=== PATIENT | male | born 1970 | race Caucasian/White ===

== ENCOUNTER 2024-08-15 21:26 | Inpatient (IN) | payer OTHER ==
[~2024-08-15] VITALS: Ht 185.4 cm; Wt 105.5 kg
[2024-08-15 22:27] LABS: BASOPHILS ABSOLUTE AUTO 0.03 K/mm3 (0.00-0.23); BASOPHILS PERCENT AUTO 0 % (0-2); EOSINOPHILS PERCENT AUTO 0 % (0-6); Hematocrit 33.9 % (37.0-53.0); Hemoglobin 10.1 g/dL (13.5-17.5); IMMATURE GRAN ABSOLUTE AUTO 0.06 K/mm3 (0.00-0.10); IMMATURE GRAN PERCENT AUTO 1 % (0-1); LYMPHOCYTES ABSOLUTE AUTO 0.65 K/mm3 (0.84-5.20); LYMPHOCYTES PERCENT AUTO 5 % (21-46); MONOCYTES ABSOLUTE AUTO 1.22 K/mm3 (0.16-1.47); MONOCYTES PERCENT AUTO 9 % (4-13); Mean Corpuscular HGB Conc 29.8 g/dL (31.5-36.5); Mean Corpuscular Volume 67 fL (80-100); Mean Platelet Volume 9.3 fL (9.1-12.4); NEUTROPHILS ABSOLUTE AUTO 11.37 K/mm3 (1.96-9.15); NEUTROPHILS PERCENT AUTO 85 % (41-73); Platelet Count 353 K/mm3 (150-400); RDW Coefficient Variation 16.3 % (11.7-14.2); RDW Standard Deviation 38.1 fL (35.1-46.3); Red Blood Cell Count 5.04 M/mm3 (4.30-5.90); White Blood Cell Count 13.33 K/mm3 (4.00-11.30)
[2024-08-15 22:40] LABS: Albumin, Blood 3.6 g/dL (3.4-5.0); Albumin/Globulin Ratio 0.9 (0.8-1.8); Bilirubin, Total 1.8 mg/dL (0.1-1.0); Bun/Creatinine Ratio 10.9 (12.0-20.0); Calcium, Blood 9.3 mg/dL (8.5-10.1); Creatinine, Blood 1.1 mg/dL (0.60-1.20); Globulin, Blood 4.2 g/dL (2.2-4.0); Total Protein, Blood 7.8 g/dL (6.4-8.2)
[2024-08-15 22:59] LABS: Source, Urine Voided
[2024-08-15 23:04] LABS: Bilirubin, Urine Neg (Neg); Blood, Urine Neg (Neg); Glucose Qualitative, Urine Neg (Neg); Ketones, Urine 1+ (Neg); Leukocyte Esterase, Urine 1+ (Neg); Nitrite, Urine Neg (Neg); Protein, Urine 2+ (Neg); Specific Gravity, Urine 1.015 (1.003-1.022); Urobilinogen, Urine 2+ (Normal); pH, Urine 6.5 (5.0-8.0)
[2024-08-15 23:18] LABS: Appearance, Urine Clear (Clear); Color, Urine Yellow (P-Yellow)
[2024-08-15 23:19] LABS: Amorphous Light (0-Heavy); Bacteria Few /hpf; Granular Casts 0-2 /lpf (0); Mucus Mod (0-Heavy); Red Blood Cells, Urine Not Seen /hpf (0-2); Squamous Epithelial Cells Rare /hpf (Few); White Blood Cells, Urine 0-2 /hpf (0-5)
[2024-08-16] VITALS (25 sets, daily range): BP systolic 91–124; BP diastolic 58–87
[2024-08-16] MEDS ORDERED: Ketorolac Tromethamine 30mg Vial IV ONE (00:15)
[2024-08-16] MEDS ORDERED: NS 1,000 ML IV SCH (00:15)
[2024-08-16] MEDS ORDERED: Ondansetron HCl 2 MG / ML 2ML Vial IV PRN ×2 (01:55→17:20)
[2024-08-16] MEDS ORDERED: Morphine Sulfate 4 MG/1 ML Injection IV PRN (01:55)
[2024-08-16] MEDS ORDERED: NS 250 ML IV PRN (03:30)
--- NOTE | 2024-08-16 05:30 | NUR ---
SHIFT SUMMARY PT ER ADMIT THIS SHIFT FOR ACUTE APPY. PT REPORTS THAT THE PAIN STARTED A FEW DAYS AGO. PT IS A HORSE [employer] THAT RESIDES IN [place] AND IS HERE FOR WORK. PT RECEIVED IV FLUIDS IN ER, AND IV TORADOL. PT REPORTS THE IV TORADOL HAS BEEN EFFECTIVE FOR PAIN AND RATES PAIN TOLERABLE AT 3/10. PT DENIES N/V. PT HAS NPO. AWAITING SURGICAL CONSULT AT THIS TIME. PT INDEPENDENT IN THE ROOM, VITALS STABLE. BED IN LOWEST POSITION, CALL LIGHT WITHIN REACH.
[2024-08-16] MEDS ORDERED: Ampicillin Sod/Sulbactam Sod 3 GM in NS 100 ML IV SCH (06:00)
[2024-08-16] MEDS ORDERED: FentaNYL Citrate 50 MCG/ML 2 ML Injection ONE ×2 (13:43→15:44)
[2024-08-16] MEDS ORDERED: propofoL 20 ML IV ONE ×6 (13:43→16:22)
[2024-08-16] MEDS ORDERED: Sugammadex Sodium 200 MG/2ML SDV (100 MG/ML) ONE ×2 (13:44)
[2024-08-16] MEDS ORDERED: Ketorolac Tromethamine 30mg Vial ONE ×2 (13:45→15:00)
[2024-08-16] MEDS ORDERED: Ondansetron HCl 2 MG / ML 2ML Vial ONE ×2 (13:45→15:00)
[2024-08-16] MEDS ORDERED: Dexamethasone Sod Phos 10 MG/ML 1ML VIAL ONE ×2 (13:45→15:00)
[2024-08-16] MEDS ORDERED: Lactated Ringer's 1,000 ML IV SCH ×2 (13:45→17:15)
[2024-08-16] MEDS ORDERED: Rocuronium Bromide 10 MG/ML 5ML Injection IV ONE ×4 (13:45→15:53)
[2024-08-16] MEDS ORDERED: Bupivacaine 0.5% HCl 5 MG/ML 30MLVIAL ONE (13:49)
--- NOTE | 2024-08-16 14:04 | NUR ---
PT HAS 20G IV IN RAC THAT FLOWS WELL TO GRAVITY, SHOWS NO SIGNS OF INFILTRATION.
[2024-08-16] MEDS ORDERED: Midazolam HCl 1MG / ML 2ML Vial IV ONE (14:15)
[2024-08-16] MEDS ORDERED: propofoL 50 ML IV ONE (14:51)
[2024-08-16] MEDS ORDERED: Metoclopramide HCl 5MG / ML 2ML Vial ONE (15:06)
[2024-08-16] MEDS ORDERED: HYDROmorphone HCl/Pf 1MG SYR ONE (15:07)
[2024-08-16] MEDS ORDERED: Flumazenil 0.1 MG / ML 5ML Vial ONE (15:09)
--- NOTE | 2024-08-16 15:33 | NUR ---
PT TO OR AT ABOUT 1345
[2024-08-16] MEDS ORDERED: Ketamine HCl 100 MG / ML 5ML Vial ONE (15:43)
[2024-08-16] MEDS ORDERED: Metoclopramide HCl 5MG / ML 2ML Vial IV PRN (17:15)
[2024-08-16] MEDS ORDERED: HYDROmorphone HCl/Pf 1MG SYR IV PRN (17:15)
[2024-08-16] MEDS ORDERED: FLU VACC TS2024-25(6MOS UP)/PF 45 MCG/0.5 ML SYRINGE IM PRN (17:15)
[2024-08-16] MEDS ORDERED: Naloxone HCl 0.4MG / ML 1ML Vial ONE (17:36)
[2024-08-16] MEDS ORDERED: Acetaminophen 500 MG Tab PO SCH (18:00)
[2024-08-16] MEDS ORDERED: Piperacillin/Tazobactam Sod 3.375 GM in NS 100 ML IV SCH (18:00)
--- NOTE | 2024-08-16 19:24 | NUR ---
POST OP: REPORT RECEIVED FROM DRIVER RETRAINING INSTRUCTOR. PT TO UNIT AT ABOUT 1830. A/O VSS, SURGICAL SITE AND LUANNE DRAIN WNL. PT DENIES PAIN, N/V. IV ANTIBIOTIC INFUSING. PT GIVEN CALL LIGHT AND INSTRUCTED TO CALL STAFF FOR 1ST TIME OOB. REPORT PASSED TO SERVANDO DUQUE RN.
[2024-08-17 04:42] VITALS: BP 131/87
--- NOTE | 2024-08-17 06:44 | NUR ---
PT TOLERATING PO,PASSING FLATUS,VOIDING, AMBULATES WITH SBA.
[2024-08-17 07:31] VITALS: BP 125/79
--- NOTE | 2024-08-17 11:28 | NUR ---
EMESIS X1 AFTER DR. DALEY REDUCED UMBILICAL HERNIA AT BEDSIDE.
[2024-08-17] MEDS ORDERED: NS 250 ML IV PRN (12:05)
[2024-08-17 14:53] VITALS: BP 102/76
[2024-08-17 14:56] VITALS: BP 120/76
--- NOTE | 2024-08-17 16:37 | NUR ---
Pt is alert and conversational and agrees to a short visit. Pt is experiencing pain related to a hernia complication and has slight difficulty speaking but is receptive to conversation nonetheless. Provided compassionate listening. Prayer offered. Pt accepted prayer and thanked me for the visit. "I appreciate you visiting"
--- NOTE | 2024-08-17 17:09 | NUR ---
SHIFT SUMMARY DR. DALEY REDUCED UMBILICAL HERNIA AT BEDSIDE TODAY. MONITORING FOR S/S OF INCARCERATED HERNIA. PT REPORTS ABD FEELS LESS DISTENDED AFTER HAVING A LOOSE BM TODAY AND PASSING FLATUS. PT GOING SLOW WITH PO INTAKE. INDEP IN RESTROOM. LAP SITES TO ABD ARE CDI AND LUANNE DRAIN WITH MINIMAL SS DRAINAGE. LUANNE DRESSING REINFORCED FOR SCANT LEAKING. PT DENIES PAIN. VSS. USES CALL LIGHT APPROPRIATELY.
[2024-08-17 18:42] VITALS: BP 133/86
[2024-08-17 19:08] VITALS: BP 123/78
[2024-08-18] VITALS (7 sets, daily range): BP systolic 100–125; BP diastolic 67–79
--- NOTE | 2024-08-18 06:32 | NUR ---
SHIFT SUMMARY POD 2 LAP APPY. IS A/OX4 WITH VSS. NO SX OF INCARCERATED HERNIA. PT DENIES PAIN. INCREASED ABD DISTENTION NOTED. PT REPORTS PASSING FLATUS AND HAVING 2 BM'S THIS SHIFT. IS VOIDING. PT C/O INCREASED DIZZINESS AND DECLINES AMBULATION IN HALLWAY. LUANNE DRAINING SERIOUS FLUID, LEAKING AT INSERTION SITE. CHG IN PLACE, REINFORCED WITH GAUZE AND TEGADERM. ORDER FOR CBC AND CMP OBTAINED, AWAITING LABS. ABX INFUSED PER ORDERS. POOR APPETITE, ANALY PO INTAKE. PT CURRENTLY RESTING IN BED WITH CALL LIGHT IN REACH, ABLE TO MAKE NEEDS KNOWN. WILL GIVE REPORT TO ONCOMING RN
[2024-08-18 06:47] LABS: BASOPHILS ABSOLUTE AUTO 0.02 K/mm3 (0.00-0.23); BASOPHILS PERCENT AUTO 0 % (0-2); EOSINOPHILS ABSOLUTE AUTO 0.01 K/mm3 (0.00-0.68); EOSINOPHILS PERCENT AUTO 0 % (0-6); Hematocrit 25.7 % (37.0-53.0); Hemoglobin 7.5 g/dL (13.5-17.5); IMMATURE GRAN ABSOLUTE AUTO 0.06 K/mm3 (0.00-0.10); IMMATURE GRAN PERCENT AUTO 1 % (0-1); LYMPHOCYTES ABSOLUTE AUTO 0.64 K/mm3 (0.84-5.20); LYMPHOCYTES PERCENT AUTO 6 % (21-46); MONOCYTES ABSOLUTE AUTO 0.68 K/mm3 (0.16-1.47); MONOCYTES PERCENT AUTO 6 % (4-13); Mean Corpuscular HGB 19.8 pg (26.0-34.0); Mean Corpuscular HGB Conc 29.2 g/dL (31.5-36.5); Mean Corpuscular Volume 68 fL (80-100); Mean Platelet Volume 9.6 fL (9.1-12.4); NEUTROPHILS ABSOLUTE AUTO 9.25 K/mm3 (1.96-9.15); NEUTROPHILS PERCENT AUTO 87 % (41-73); Platelet Count 317 K/mm3 (150-400); RDW Coefficient Variation 16.5 % (11.7-14.2); RDW Standard Deviation 40.1 fL (35.1-46.3); Red Blood Cell Count 3.79 M/mm3 (4.30-5.90); White Blood Cell Count 10.66 K/mm3 (4.00-11.30)
[2024-08-18 07:20] LABS: Albumin, Blood 2.3 g/dL (3.4-5.0); Albumin/Globulin Ratio 0.6 (0.8-1.8); Bilirubin, Total 0.6 mg/dL (0.1-1.0); Bun/Creatinine Ratio 21.4 (12.0-20.0); Calcium, Blood 8.5 mg/dL (8.5-10.1); Creatinine, Blood 1.03 mg/dL (0.60-1.20); Globulin, Blood 3.9 g/dL (2.2-4.0); Potassium, Blood 3.9 mmol/L (3.5-5.5); Total Protein, Blood 6.2 g/dL (6.4-8.2)
--- NOTE | 2024-08-18 14:11 | NUR ---
Pt was alert and conversational. Pt was open to a short visit. Addressed pt's current condition. Pt is experiencing discomfort related to appendix removal. Pt did not have a restful evening. Pt remains positive and polite in spite of these circumstances. Prayer offered. Pt was grateful for prayer and expressed gratitude- "god bless you"
--- NOTE | 2024-08-18 15:10 | NUR ---
PT REPORTS DRAINAGE FROM INSERTION SITE OF LUANNE DRAIN. UPON ASSESSMENT SMALL AMOUNT OF PALE YELLOW FLUID DRAINING FROM SITE. DRESSING WET. GAUZE DRESSING REMOVED AND REPLACED WITH GAUZE AND CHG DRESSING. SITE NOW CLEAN, DRY AND INTACT. LUANNE DRAIN IS WITHIN NORMAL LIMITS AND COMPRESSED. NANCI Lilly RN ASSISTED AT BEDSIDE.
[2024-08-18 16:46] LABS: Percent Saturation 4.2 % (20.0-50.0)
--- NOTE | 2024-08-18 17:04 | NUR ---
SUMMARY: PT IS POD2 LAP APPY. A/O, VSS. SURGICAL SITES WNL. LUANNE WNL AND DRAINING SS FLUID. ABD IS MODERATLY DISTENDED AND SOFT. PT IS PASSING GAS AND HAD X2 DARK, GRAINY BM'S. DR. MATOS CONSULTED TODAY FOR BACTEREMIA AND SAW PT. PT DENIES N/V, PAIN. PT ABLE TO EAT SMALL AMT OF FOOD, BUT THEN REPORTS FEELING BLOATED. ENCOUARING MOBILITY, PT ABLE TO WALK IN THE HALLS A LITTLE TONIGHT. NO ACUTE CONCERNS, PT USES CALL LIGHT AND MAKES NEEDS KNOWN.
[2024-08-18] MEDS ORDERED: Iron Dextran 50 MG / ML 2ML Vial IV ONE (18:15)
[2024-08-18] MEDS ORDERED: Iron Dextran 975 MG in NS 250 ML IV ONE (18:15)
[2024-08-19 05:17] VITALS: BP 111/72
--- NOTE | 2024-08-19 05:31 | NUR ---
SHIFT SUMMARY POD 3-LAP APPY. 4 LAP SITES C/D/I W/SKIN ADHESIVE. LUANNE TO LLQ ABD W/SEROUS DRAINAGE, CHANGED TEGADERM DRESSING 1x THIS SHIFT SINCE SATURATED W/DRAINAGE. PT DENIES N/V, TOLERATING MIN PO INTAKE, HYPERACTIVE BT, PASSING FLATUS, PT HAD 1 LIQUID BROWN/BLK BM RESEMBLING COFFEE GROUNDS, PT STATES BMS HAVE BEEN LOOKING LIKE THIS. RECIEVED IV IRON DEXTRAN INFUSION, NO REACTIONS NOTED, PT ONLY REPORTED FEELING "HEAVY" AFTER INFUSION. AOX4. VSS. DENIES PAIN. IND W/URINAL. CALL LIGHT IN REACH.
[2024-08-19 06:09] LABS: Hematocrit 25.5 % (37.0-53.0); Hemoglobin 7.5 g/dL (13.5-17.5); Mean Corpuscular HGB 19.8 pg (26.0-34.0); Mean Corpuscular HGB Conc 29.4 g/dL (31.5-36.5); Mean Corpuscular Volume 68 fL (80-100); Mean Platelet Volume 9.6 fL (9.1-12.4); Platelet Count 377 K/mm3 (150-400); RDW Coefficient Variation 16.8 % (11.7-14.2); RDW Standard Deviation 40.3 fL (35.1-46.3); Red Blood Cell Count 3.78 M/mm3 (4.30-5.90); White Blood Cell Count 8.23 K/mm3 (4.00-11.30)
[2024-08-19 07:55] VITALS: BP 120/66
[2024-08-19 14:44] VITALS: BP 129/75
[2024-08-19] MEDS ORDERED: Ferrous Sulfate 325 MG Tab PO SCH (17:00)
--- NOTE | 2024-08-19 17:39 | NUR ---
SUMMARY AOX4 S/P LAP APPY. LAP SITES ARE JACKIE, C/D/I. TOLERATES PO INTAKE, PASSING FALTUS, HAVING LIQUID STOOLS. WALKING TORRES, DENIES N/V, N/V. VSS. IV ABX, AWAITING BLOOD CX. CALLS APROPRIATELY.
[2024-08-19 19:51] VITALS: BP 117/76
[2024-08-20 04:16] VITALS: BP 111/76
[2024-08-20 05:30] LABS: Hematocrit 25.5 % (37.0-53.0); Hemoglobin 7.6 g/dL (13.5-17.5); Mean Corpuscular HGB 20.3 pg (26.0-34.0); Mean Corpuscular HGB Conc 29.8 g/dL (31.5-36.5); Mean Corpuscular Volume 68 fL (80-100); NRBC ABSOLUTE 0.04 K/mm3 (0.00-0.02); NRBC Auto 0.4 /100 WBC (0.0-0.2); Platelet Count 396 K/mm3 (150-400); RDW Coefficient Variation 16.8 % (11.7-14.2); RDW Standard Deviation 40.6 fL (35.1-46.3); Red Blood Cell Count 3.75 M/mm3 (4.30-5.90); White Blood Cell Count 9.37 K/mm3 (4.00-11.30)
[2024-08-20 07:28] VITALS: BP 116/76
--- NOTE | 2024-08-20 07:45 | NUR ---
SHIFT SUMMARY NO ACUTE CHANGES THIS SHIFT. AOX4. VSS. POD 4-LAP APPY W/LUANNE LLQ ABD. x4 LAP SITES OPEN TO AIR, NO DRAINAGE NOTED. 20ML SEROUS DRAINAGE IN LUANNE. ACTIVE BT. PASSING FLATUS. DENIES N/V. ANALY PO. HAD 1 LOOSE BROWN/BLK BM RESEMBLING COFFEE GROUNDS. PENDING BLD CX RESULTS. CALL LIGHT IN REACH.
[2024-08-20 16:43] VITALS: BP 123/72
--- NOTE | 2024-08-20 18:27 | NUR ---
PT HAS BEEN STABLE POST OP DAY #4. LUANNE REMAIN IN PLACE WITH 35CC TOTAL SEROUS FLUID OUT THIS SHIFT. LAP SITES CLEAN AND DRY. PT HAVING FLATUS AND LOOSE GREEN STOOL. CONT IV ABX. BLOOD CULTURES PENDING. CONT PO IRON FOR ANEMIA. IV AT TKO. TOLERATING REG DIET. PT INDEP IN HALLWAYS. SHOWER TODAY. CALLS APPROPRIATELY NEEDED.
[2024-08-20 18:38] VITALS: BP 124/73
--- NOTE | 2024-08-21 04:45 | NUR ---
NOC SUMMARY- NO PAIN/ DISCOMFORT REPORTED. PT VOIDING WELL AND PASSING GAS. PT HAS BEEN OUT FOR WALKS ON THE UNIT WITHOUT ISSUE. PT DRAIN IS PUTTING OUT SCANT FLUID. PT LAP SITES ARE INTACT AND OPEN TO AIR. PT TOLERATING FOOD AND PO FLUIDS. CALL LIGHT IN REACH.
[2024-08-21 06:03] VITALS: BP 116/81
[2024-08-21 07:32] VITALS: BP 117/77
--- NOTE | 2024-08-21 08:47 | NUR ---
DR MATOS AND DR DALEY IN TO SEE PT.
[2024-08-21] MEDS ORDERED: FERSU300 PO (10:08)
[2024-08-21] MEDS ORDERED: VISBIOME 112.51 EACH PO (10:08)
[2024-08-21] MEDS ORDERED: CIPR500 PO (10:09)
[2024-08-21] MEDS ORDERED: METR500 PO (10:09)
[2024-08-21 13:54] VITALS: BP 117/76; BP 1176/76
--- NOTE | 2024-08-21 14:04 | NUR ---
DISCHARGING PT RECEIVED 1200 ABX PER ORDERS. DC'D LUANNE DRAIN PER ORDERS; PT TOLERATED WELL. DC'D IV, CATHETER INTACT.
--- NOTE | 2024-08-21 14:16 | NUR ---
discharged PT'S VSS. REVIEWED DC INSTRUCTIONS W/PT; VERBALIZED UNDERSTANDING. PT LEFT UNIT BY AMBULATION W/POSSESSIONS AND DC PAPERWORK IN HAND.
== END 2024-08-21 14:18 | disposition home or self-care (01) | DRG 398 ==
LOC: ER 21:26 → SURS 21:27 → ERHOLD 21:27 → SURS 08-16 03:06
PROVIDERS: Internal Medicine; Student in an Organized Health Care Education/Training Program; Surgery; ADMIT Surgery
PROC: 3E0T3BZ Introduction of Anesthetic Agent into Peripheral Nerves and Plexi, Percutaneous Approach (ICD-10-PCS; 2024-08-16)
PROC: 0DTJ4ZZ Resection of Appendix, Percutaneous Endoscopic Approach (ICD-10-PCS; principal; 2024-08-16 14:30)
DX: K35.33 Acute appendicitis with perforation, localized peritonitis, and gangrene, with abscess (principal); D62 Acute posthemorrhagic anemia; R78.81 Bacteremia; E86.0 Dehydration; E66.9 Obesity, unspecified; Z68.30 Body mass index [BMI] 30.0-30.9, adult; K42.9 Umbilical hernia without obstruction or gangrene; B96.89 Other specified bacterial agents as the cause of diseases classified elsewhere; D50.9 Iron deficiency anemia, unspecified
CPT/HCPCS: 36415; 74177; 80053; 81001; 82728; 83540; 83550; 83605; 83690; 85025; 85027; 87040; 87077; 88304; 96365; 96374-59; 96375; 96375-59; 96376; 99285-25; A9270; G0378; J0295; J1100; J1171; J1750; J1885; J2250; J2270; J2310; J2405; J2543; J2704; J2765; J3010; J7030; J7050; J7120; Q9967